=== PATIENT | female | born 1975 | race American Indian/Alaskan Native ===

== ENCOUNTER 2016-11-25 06:22 | Day surgery (SDC) | payer MEDICAID ==
[2016-11-25] MEDS ORDERED: NACL 0.9% 1000 ML 1,000 ML ONE (07:33)
--- NOTE | 2016-11-25 07:36 | Anesthesia Consultation ---
Anesthesia Consult and Med Hx Date of service: 11/25/16 - Airway Anesthetic Teeth Evaluation: Good ROM Head & Neck: Adequate Mental/Hyoid Distance: Adequate Mallampati Class: Class II Intubation Access Assessment: Probably Good - Pulmonary Exam CTA: Yes - Cardiac Exam Cardiac Exam: RRR - Pre-Operative Health Status ASA Pre-Surgery Classification: ASA3 Proposed Anesthetic Plan: MAC - Pulmonary Hx Smoking: Yes (VERY LIGHT TOBACCO SMOKER/1 CIGARETTE A WEEK) Hx Asthma: Yes SOB: Yes Hx Sleep Apnea: Yes - Central Nervous System Hx Psychiatric Problems: No - Gastrointestinal Hx Ulcer: Yes (PEPTIC ULCER) - Other Systems Hx Alcohol Use: No Hx Substance Use: No Hx Cancer: No Hx Obesity: Yes
--- NOTE | 2016-11-25 07:37 | Anesthesia Day of Surgery ---
Anesthesia Day of Surgery - Day of Surgery Patient Examined: Yes Patient H&P Reviewed: Yes Patient is NPO: Yes
--- NOTE | 2016-11-25 07:56 | Discharge Summary ---
Providers - Providers Date of discharge: 11/25/16 Attending physician: KRZYSZTOF MCINTOSH Hospitalization Reason for admission: outpatient EGD Condition: Stable Procedures: egd Disposition: TO HOME OR SELFCARE Core Measure Documentation - Palliative Care Palliative Care/ Comfort Measures: Not Applicable - Core Measures Any of the following diagnoses?: none Exam - Physical Exam Narrative exam: unchanged from preop Plan Activity: advance as tolerated Diet: low carbohydrate
[2016-11-25] MEDS ORDERED: PEPCID IV ONE (08:01)
--- NOTE | 2016-11-25 08:12 | Operative Report ---
Operative Report Operative Report: EGD Post bypass DATE: 11/25/2016 OPERATIVE REPORT - EGD PREOP DIAGNOSIS: gastric dyspepsia, epigastric pain POSTOP DIAGNOSIS: same SURGERY: Upper endoscopy. SURGEON: José Miguel Colindres M.D. LENDING MANAGER: Brian Galindo M.D. TYPE OF ANESTHESIA: MAC. ESTIMATED BLOOD LOSS: None. COMPLICATIONS: None. SPECIMENS REMOVED: None. FINDINGS: 1. normal esophagus 2. gastric pouch - 40ml 3. gastrojejunal anastomosis is 20mm INDICATIONS:INDICATION FOR PROCEDURE: Patient is a 41-year-old F s/p gastric bypass in 2016. The patient is here today for evaluation for epigastric pain and dyspepsia. PROCEDURE DETAILS: After consent was reviewed, patient was taken back to the operating room where patient was placed in the left lateral decubitus position and a bite block was placed in the mouth. After a time-out was called, MAC anesthesia was initiated. I then passed the endoscope into the patients oropharynx, into the esophagus, visualized the entire esophagus, which was all within normal limits. I then visualized the gastric pouch which was normal and about 40ml in size. The gastrojejunal anastomosis was normal at about 20mm. The proximal portion of the atif limb was normal. A biopsy of the distal gastric pouch (GJ anastomosis ) was taken for H. pylori. I then desufflated the gastric pouch and removed the endoscope. Patient tolerated procedure well and was transferred to recovery room in good and stable condition
[2016-11-25] MEDS ORDERED: DIPRIVAN 10 MG/ML IV ONE ×2 (08:14)
[2016-11-25] MEDS ORDERED: PEPCID IV NR (09:00)
--- NOTE | 2016-11-25 09:35 | Post Anesthesia Evaluation ---
- Post Anesthesia Evaluation Patient Participated: Yes Airway Patent: Yes Stable Respiratory Function: Yes Temp > 96.8F: Yes Pain Manageable: Yes Adequeate Hydration: Yes Anesthesia Complications: No Block Receding Appropriately: Not Applicable
[2016-11-25 09:45] VITALS: BP 148/99
[2016-11-25] MEDS ORDERED: NACL 0.9% 1000 ML 1,000 ML IV SCH (10:00)
== END 2016-11-25 06:23 | disposition home or self-care (01) ==
LOC: GIO 06:22
PROVIDERS: ATTEND Specialist
DX: R10.13 Epigastric pain (principal); J45.909 Unspecified asthma, uncomplicated; G43.909 Migraine, unspecified, not intractable, without status migrainosus; K21.9 Gastro-esophageal reflux disease without esophagitis; E66.01 Morbid (severe) obesity due to excess calories; F17.210 Nicotine dependence, cigarettes, uncomplicated; Z68.45 Body mass index [BMI] 70 or greater, adult; Z87.11 Personal history of peptic ulcer disease; Z88.0 Allergy status to penicillin; Z91.030 Bee allergy status; Z91.018 Allergy to other foods; Z98.84 Bariatric surgery status; Z90.49 Acquired absence of other specified parts of digestive tract; Z98.890 Other specified postprocedural states; Z83.49 Family history of other endocrine, nutritional and metabolic diseases; Z82.49 Family history of ischemic heart disease and other diseases of the circulatory system
CPT/HCPCS: 43239; 81025; 88305; 88342; J2704; J7030

== ENCOUNTER 2018-07-02 11:00 | Outpatient (CLI) | payer MEDICAID | END 2018-07-02 11:01 | disposition home or self-care (01) | LOC: SLR 11:00 | PROVIDERS: ATTEND Otolaryngology | DX: G47.33 Obstructive sleep apnea (adult) (pediatric) (principal); R40.0 Somnolence; R06.83 Snoring; J45.909 Unspecified asthma, uncomplicated; E66.9 Obesity, unspecified; Z90.49 Acquired absence of other specified parts of digestive tract; Z87.891 Personal history of nicotine dependence | CPT/HCPCS: 95810 ==

== ENCOUNTER 2018-08-06 11:00 | Outpatient (CLI) | payer MEDICAID | END 2018-08-06 11:01 | disposition home or self-care (01) | LOC: SLR 11:00 | PROVIDERS: ATTEND Otolaryngology | DX: G47.33 Obstructive sleep apnea (adult) (pediatric) (principal); R40.0 Somnolence; R06.83 Snoring; J45.909 Unspecified asthma, uncomplicated; E66.9 Obesity, unspecified; Z90.49 Acquired absence of other specified parts of digestive tract; Z87.891 Personal history of nicotine dependence | CPT/HCPCS: 95811 ==

== ENCOUNTER 2018-11-02 06:23 | Day surgery (SDC) | payer MEDICAID ==
[2018-11-02] MEDS ORDERED: NACL 0.9% 1000 ML 1,000 ML IV SCH (07:00)
--- NOTE | 2018-11-02 07:46 | Anesthesia Day of Surgery ---
Anesthesia Day of Surgery - Day of Surgery Patient Examined: Yes Patient H&P Reviewed: Yes Patient is NPO: Yes
--- NOTE | 2018-11-02 07:50 | Anesthesia Consultation ---
Anesthesia Consult and Med Hx Date of service: 11/02/18 (33) - Airway Anesthetic Teeth Evaluation: Chipped ROM Head & Neck: Adequate Mental/Hyoid Distance: Adequate Mallampati Class: Class I Intubation Access Assessment: Good - Pre-Operative Health Status ASA Pre-Surgery Classification: ASA3 Proposed Anesthetic Plan: MAC - Pulmonary Hx Smoking: Yes Hx Asthma: Yes SOB: Yes Hx Sleep Apnea: Yes - Central Nervous System Hx Neuromuscular Disorder: Yes (Neuropathy-Feet) Hx Psychiatric Problems: No - Gastrointestinal Hx Ulcer: Yes (PEPTIC ULCER) Hx Gastroesophageal Reflux Disease: Yes - Other Systems Hx Alcohol Use: No Hx Substance Use: No Hx Cancer: No Hx Obesity: Yes
[2018-11-02] MEDS ORDERED: DIPRIVAN 10 MG/ML IV ONE (08:13)
[2018-11-02] MEDS ORDERED: VERSED ONE (08:13)
[2018-11-02] MEDS ORDERED: NORMODYNE IV ONE (08:30)
[2018-11-02] MEDS ORDERED: APRESOLINE ONE (08:56)
[2018-11-02 10:03] VITALS: BP 138/74
--- NOTE | 2018-11-02 18:29 | Operative Report ---
SURGEON: José Miguel Colindres M.D. ELECTRICAL LABORATORY TECHNICIAN: Pelon Chan M.D. PREOPERATIVE DIAGNOSES: 1. Dyspepsia. 2. Failure of gastrointestinal anastomosis. 3. Status post laparoscopic sleeve to Kenney-en-Y gastric bypass. POSTOPERATIVE DIAGNOSES: 1. Dilated gastrojejunal anastomosis. 2. Dilated gastric pouch. PROCEDURE: Upper endoscopy. ANESTHESIA: MAC. COMPLICATIONS: None. SPECIMENS: None. BLEEDING: None. INDICATIONS: The patient is a 43-year-old female who underwent a laparoscopic sleeve in 2013 followed by a conversion to a Kenney-en-Y gastric bypass in 2016. She now endorses dyspepsia as well as epigastric pain as well as weight regain and wishes for consideration of revisional surgery. She is here for a preoperative endoscopy. Informed consent was obtained. DESCRIPTION OF PROCEDURE: The patient was brought to the GI suite where she was placed in the left lateral decubitus position and underwent MAC anesthesia. A bite block was placed and a timeout was called. A standard adult gastroscope was inserted into the oropharynx, down the esophagus, into the pouch. On entering into the pouch, her pouch was noted to be dilated measuring approximately 50 mL in total volume. Of note, her gastrojejunal anastomosis was widely dilated at about 50 mm in total diameter. On inspection of the candy cane limb as well as the Kenney limb, there were no lesions or abnormalities. There were no ulcers, no erosions, no exposed sutures. With this, the air was suctioned out. The gastroscope was removed. The patient tolerated the procedure with no immediate complications and was transferred to the PACU in stable condition. FINDINGS: 1. Pouch 50 mL. 2. Anastomosis 75 mm. NOTE: This patient is status post laparoscopic sleeve to Kenney-en-Y gastric bypass. The patient is being seen and evaluated for dyspepsia, epigastric pain and reflux. Diagnoses unrelieved by medical management. She has also had significant weight regain. EGD was done to evaluate the anastomosis and pouch size. Results of the EGD revealed a 50 mL pouch, 50 mm anastomosis. Enterogastric reflux was seen. Diagnoses is failed gastrojejunal anastomosis with enterogastric reflux and a large gastric pouch with retained parietal cells resulting in pain from acid secretion. The patient will need multiple visits with the dietitian who will determine when the patient is ready for surgery. Plan for followup in the office with the dietitian and completion of items on the roadmap as well as final insurance approval and then proceed with correction of gastrojejunal anastomosis, possible gastric resection and biliopancreatic limb lengthening. JOB# [id number] FELISA/SHAHEEN NATARAJAN
== END 2018-11-02 06:24 | disposition home or self-care (01) ==
LOC: GIO 06:23
PROVIDERS: ATTEND Specialist
DX: K31.89 Other diseases of stomach and duodenum (principal); K63.89 Other specified diseases of intestine; K31.4 Gastric diverticulum; K21.9 Gastro-esophageal reflux disease without esophagitis; K30 Functional dyspepsia; J45.909 Unspecified asthma, uncomplicated; G47.30 Sleep apnea, unspecified; G43.909 Migraine, unspecified, not intractable, without status migrainosus; E66.9 Obesity, unspecified; G62.9 Polyneuropathy, unspecified; Z87.891 Personal history of nicotine dependence; Z88.0 Allergy status to penicillin; Z91.030 Bee allergy status; Z88.8 Allergy status to other drugs, medicaments and biological substances; Z79.899 Other long term (current) drug therapy; Z90.49 Acquired absence of other specified parts of digestive tract; Z98.890 Other specified postprocedural states; Z68.44 Body mass index [BMI] 60.0-69.9, adult
CPT/HCPCS: 43235; 81025; J0360; J2250; J2704; J7030